=== PATIENT | female | born 1965 | race Caucasian/White ===

== ENCOUNTER → 2017-05-08 | Outpatient (CLI) | payer BC ==
[~2017-05-08] MED LIST: DSY50; INDSR60; NISO20TA PO; PHEN-876 PO; SUMA100T16; SYN100
--- NOTE | 2017-05-08 17:22 | DIAGNOSTIC IMAGING REPORT ---
RIGHT FOOT 3 VIEWS HISTORY: PAIN IN RIGHT FOOT Right COMPARISON: None. FINDINGS: There is no fracture or dislocation. Soft tissues are unremarkable. No radiopaque foreign bodies. Plantar heel spur. Mild cartilage space narrowing and subchondral sclerosis at the first MTP joint. This is consistent with mild degenerative change. IMPRESSION: No fractures. Mild osteoarthritis at the first MTP joint. Electronically signed by: Yogi Walker M.D. 05/08/2017 5:21 PM Dictated Date/Time: 05/08/2017 5:19 PM
== END | disposition home or self-care (01) ==
LOC: C.RAD 16:55
PROVIDERS: ATTEND Nurse Practitioner
DX: M79.671 Pain in right foot (principal)

== ENCOUNTER → 2017-10-30 | Outpatient (CLI) | payer BC ==
--- NOTE | 2017-10-30 14:11 | MAMMOGRAPHY REPORT ---
BILATERAL DIGITAL SCREENING MAMMOGRAM TOMOSYNTHESIS WITH CAD: 10/30/2017 CLINICAL HISTORY: Routine screening. TECHNIQUE: Breast tomosynthesis in addition to standard 2D mammography was performed. Current study was also evaluated with a Computer Aided Detection (CAD) system. COMPARISON: Comparison is made to exams dated: 10/29/2016 mammogram, 10/24/2015 mammogram, 4 mammogram, 10/20/2013 mammogram, 10/07/2012 mammogram, and 12/29/2010 mammogram - [facility]. BREAST COMPOSITION: There are scattered areas of fibroglandular density in both breasts. FINDINGS: No suspicious masses, calcifications, or areas of architectural distortion are noted in ei ther breast. There has been no significant interval change compared to prior exams. IMPRESSION: ACR BI-RADS CATEGORY 1: NEGATIVE There is no mammographic evidence of malignancy. A 1 year screening mammogram is recommended. The pa tient will receive written notification of the results. Approximately 10% of breast cancers are not detected with mammography. A negative mammographic report should not delay biopsy if a clinically suggestive mass is present. Christina Tapia M.D. /:10/30/2017 12:42:11 Setter Out: Alden BAR(Angelica)(M), [facility] letter sent: Normal 1/2 BI-RADS Code: ACR BI-RADS Category 1: Negative
== END | disposition home or self-care (01) ==
LOC: C.MAMM 12:04
PROVIDERS: ATTEND Obstetrics & Gynecology
DX: Z12.31 Encounter for screening mammogram for malignant neoplasm of breast (principal)

== ENCOUNTER → 2018-01-31 | Outpatient (CLI) | payer OTHER | END | disposition home or self-care (01) | LOC: C.PAPS 18:18 | PROVIDERS: ATTEND Obstetrics & Gynecology | DX: Z12.4 Encounter for screening for malignant neoplasm of cervix (principal) ==

== ENCOUNTER 2023-12-01 22:16 | Observation (INO) ==
[2023-12-01] MEDS ORDERED: KETOROLAC 30 MG/ML VIAL IV STA (22:30)
--- NOTE | 2023-12-01 22:41 | Emergency Department Note ---
History of Present Illness General Chief complaint: Swelling/Edema to Extremity Stated complaint: EDEMA TO RT FOOT/LEG,WENT DOWN AFTER MED/NOW BACK Time Seen by Provider: 12/01/23 22:27 History of Present Illness Maximum Pain Intensity: 7 This is a 58-year-old female presenting to the emergency department for evaluation of pain and redness to her right foot and ankle. Patient has had symptoms for the past 2 weeks. She has followed with her family doctor for this where she had blood work, ultrasound, and ankle x-rays that were reportedly normal. She was started on Augmentin and is on day 8 of 10 of the medication. Despite being on the medication she continues with worsening pain that is rated a 7/10. Patient is diabetic and has some neuropathy at baseline. She has not had any chest pain, chest tightness, shortness of breath, or fever. Home Medications Medication Instructions Recorded Confirmed Type losartan 100 1 tab PO QAM 12/04/19 12/02/23 History mg-hydrochlorothiazide 12.5 mg tablet trazodone 50 mg tablet 50 mg PO HS 12/04/19 12/02/23 History naproxen 500 mg tablet 500 mg PO Q12H PRN pain 12/15/20 12/02/23 History Nerve Control 911 1 tab PO AMHS 12/02/23 12/02/23 History duloxetine 60 mg capsule,delayed 60 mg PO HS 12/02/23 12/02/23 History release empagliflozin 10 mg tablet 10 mg PO QPM 12/02/23 12/02/23 History (Jardiance) glyburide 5 mg tablet 5 mg PO QAM 12/02/23 12/02/23 History insulin degludec 100 unit/mL (3 19 unit subcut HS 12/02/23 12/02/23 History mL) subcutaneous pen (Tresiba FlexTouch U-100 insulin) levothyroxine 175 mcg tablet 175 mcg PO 6XWK 12/02/23 12/02/23 History propranolol 120 mg capsule,24 120 mg PO QAM 12/02/23 12/02/23 History hr,extended release rosuvastatin 20 mg tablet 20 mg PO HS 12/02/23 12/02/23 History sitagliptin phosphate 50 1 tab PO BID 12/02/23 12/02/23 History mg-metformin 1,000 mg tablet ([place]) Allergies Allergy/AdvReac Type Severity Reaction Status Date / Time cephalexin [From Keflex] Allergy Intermediate Rash Verified 12/02/23 01:48 Sulfa (Sulfonamide Allergy Intermediate Rash Verified 12/02/23 01:48 Antibiotics) Past Med/Surg History Medical History History of thyroid cancer History of diabetes mellitus, type II History of migraine History of hypertension History of hypothyroidism KAVIN (obstructive sleep apnea) Surgical History History of endometrial ablation S/P tooth extraction History of thyroid surgery History of rotator cuff surgery History of cholecystectomy Family History Unknown Osteoarthritis Aunt Rheumatoid arthritis maternal Sister Hypothyroidism Mother Hypothyroidism Father Deep vein thrombosis Denies family history of Cervical cancer Ovarian cancer Breast cancer Colorectal cancer Uterine cancer Social History Smoking Status: Never smoker Second Hand Exposure: No; Do You Dip or Chew Tobacco: No; Tobacco Cessation Education Requested by Patient: No Hx Alcohol Use: Yes Alcohol type: wine Alcohol Intake Frequency: Monthly or Less Hx Substance Use: No Preferred Language: French Communication Ability: Effective 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 Beliefs That Will Affect Care: None marital status: Life Partner Current Living Situation: Spouse Current Living Situation Comment: multiple story house current occupational status: employed 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 Other Information That Helps Us Care for You: No Feels Safe at Home: Yes Safety Concerns: Feels Safe At This Time Diet: diabetic Physical Activity Frequency: Does not Exercise Assistive Devices: CPAP Review of Systems A total of 10 systems reviewed and were otherwise negative Physical Exam Vital Signs Vital Signs - 24 hr 12/01/23 22:19 12/01/23 22:30 12/01/23 23:00 Temperature 36.1 C L Temperature Source Temporal Artery Scan Pulse Rate 103 H 95 H Pulse Rate [Apical] 97 H Respiratory Rate 18 18 Respiratory Effort / Characteristics Non-Labored Spontaneous Non-Labored Spontaneous Respiratory Depth Normal Normal Respiratory Pattern Regular Regular Blood Pressure 144/93 H Blood Pressure [Right Arm] 165/98 H Blood Pressure Mean 110 Blood Pressure Mean [Right Arm] 120 Pulse Oximetry 96 95 Oxygen Delivery Method Room Air Room Air Sepsis Recent Fever Within 48 Hours No Sepsis New/Unexplained Change in Mental Status No Sepsis Action Taken by Nursing No Action Required 12/02/23 00:18 12/02/23 01:10 Temperature Temperature Source Pulse Rate Pulse Rate [Apical] 96 H 97 H Respiratory Rate 16 16 Respiratory Effort / Characteristics Respiratory Depth Respiratory Pattern Blood Pressure Blood Pressure [Right Arm] 138/88 138/91 Blood Pressure Mean Blood Pressure Mean [Right Arm] 104 106 Pulse Oximetry 95 94 Oxygen Delivery Method Room Air Room Air Sepsis Recent Fever Within 48 Hours Sepsis New/Unexplained Change in Mental Status Sepsis Action Taken by Nursing VITALS: Vitals are noted on the nurse's note and reviewed by myself. Vital signs stable. GENERAL: Well-developed, well-nourished, white female, who is in no acute distress and resting comfortably. Patient is cooperative with the examination. HEAD: Normocephalic atraumatic. HEART: Regular rate and rhythm without murmurs gallops or rubs. LUNGS: Clear to auscultation bilaterally without wheezes, rales or rhonchi. No retractions or accessory muscle use. ABDOMEN: Positive normal bowel sounds x 4. Soft, nontender, without masses or organomegaly. No guarding or rebound tenderness. MUSCULOSKELETAL: There is notable erythema and edema to the right ankle and to the right foot. Area is tender and warm on palpation. Neurovascular status appears intact. No palpable cord or calf tenderness. Course Administered Medications Discontinued Medications Hydroxyzine HCl (Hydroxyzine Hcl 25 Mg Tab) 25 mg PO NOW STA Stop: 12/02/23 01:31 Last Admin: 12/02/23 02:05 Dose: 25 mg Documented By: ENRIQUE Ketorolac Tromethamine (Ketorolac 30 Mg/Ml Vial) 30 mg IV NOW STA Stop: 12/01/23 22:31 Last Admin: 12/01/23 22:42 Dose: 30 mg Documented By: MED Medical Decision Making Differential Diagnosis Differential diagnosis: Etiologies such as DVT, vascular ischemia, radiculopathy, fracture, hematoma/contusion, myositis, abscess, septic arthritis cellulitis, joint effusion, trauma, lymphedema, idiopathic, CHF, as well as others were entertained. Laboratory Data 12/01/23 22:50 12/01/23 22:50 Lab Results 12/01/23 Range/Units 22:50 WBC 12.88 H (4.8-10.8) K/ul RBC 4.73 (4.20-5.40) M/uL Hgb 13.4 (12.0-16.0) g/dl Hct 38.2 (37.0-47.0) % MCV 80.8 (80.0-100.0) fL MCH 28.3 (25.0-34.0) pg MCHC 35.1 (32.0-36.0) g/dL RDW Std Deviation 37.5 (36.4-46.3) fL RDW Coeff of Sae 13.0 (11.5-14.5) % Plt Count 346 (130-400) K/uL MPV 8.9 L (9.4-12.4) fL Immature Gran % (Auto) 0.4 % Neut % (Auto) 61.5 % Lymph % (Auto) 25.2 % [place] % (Auto) 8.1 % Eos % (Auto) 4.0 % Baso % (Auto) 0.8 % Neut # (Auto) 7.93 H (1.40-6.50) K/uL Lymph # (Auto) 3.25 (1.20-3.40) K/uL [place] # (Auto) 1.04 H (0.11-0.59) K/uL Eos # (Auto) 0.51 H (0.00-0.50) K/uL Baso # (Auto) 0.10 (0.00-0.20) K/uL Immature Gran # (Auto) 0.05 (0.01-0.20) K/uL ESR 71 H (0-30) mm/hr Sodium 138 (136-145) mmol/L Potassium 3.5 (3.5-5.1) mmol/L Chloride 98 (98-107) mmol/L Carbon Dioxide 27 (21-32) mmol/L Anion Gap 13 H (3-11) BUN 18 (6-23) mg/dl Creatinine 1.05 (0.6-1.2) mg/dl Est Cr Clr Drug Dosing 65.4 ml/min Est GFR ( Amer) 67.3 ml/min Est GFR (Non-Af Amer) 58.1 ml/min BUN/Creatinine Ratio 17.1 (10-20) Glucose 175 H (70-99(Fasting)) mg/dl Uric Acid 4.8 (2.6-7.2) mg/dl Calcium 9.5 (8.6-10.3) mg/dl Total Bilirubin 0.5 (0.2-1.0) mg/dl AST 14 (13-39) U/L ALT 12 (7-52) U/L Alkaline Phosphatase 88 (34-104) U/L C-Reactive Protein 7.90 H (0-0.5) mg/dl Total Protein 7.8 (6.0-8.3) gm/dl Albumin 4.1 (3.4-5.0) gm/dl Globulin 3.7 (2.5-4.0) gm/dl Albumin/Globulin Ratio 1.1 (0.9-2) Lyme Disease IgG Ab Negative (Negative) Lyme Disease IgM Ab Negative (Negative) Imaging Data Radiologist's Impression: Venous Doppler Study 12/01/23 22:30 Exam(s): US VENOUS RIGHT LOWER EXTREMITY EXAM: US Duplex Right Lower Extremity Veins CLINICAL HISTORY: Reason for exam: rle edema. TECHNIQUE: Real-time duplex ultrasound scan of the right lower extremity veins integrating B-mode two-dimensional vascular structure, Doppler spectral analysis, color flow Doppler imaging and compression. COMPARISON: None. FINDINGS: Deep veins: Unremarkable. No DVT in the visualized common femoral, femoral, proximal deep femoral or popliteal veins. The veins demonstrate normal color flow, are normally compressible, with normal phasic flow and/or augmentation response. Superficial veins: Unremarkable. No thrombus in the visualized great saphenous vein. Soft tissues: No acute findings. No popliteal cyst. Lymph nodes: Ovoid structure at the level of the right groin measuring 4.0 x 1.3 x 2.1 cm which could represent an enlarged lymph node. IMPRESSION: 1. No ultrasonographic evidence of deep venous thrombosis involving the right lower extremity . 2. Mild lymphadenopathy at the right groin, etiology indeterminate and commonly associated with nonspecific inflammatory response. Electronically signed by: Julia Shanks MD 12/02/23 00:[address] 12/02/23 00:48 Exam(s): CT RIGHT FOOT Without Contrast EXAM: CT Right Lower Extremity Without Intravenous Contrast, Foot CLINICAL HISTORY: Reason for exam: acute Charcot foot. TECHNIQUE: Axial computed tomography images of the right foot without intravenous contrast. Automated exposure control was utilized for the study. A dose lowering technique was utilized adhering to the principles of ALARA. COMPARISON: None. FINDINGS: Bones/joints: Plantar calcaneal spur. Comminuted fracture involving the tip of the anterior calcaneus. Comminuted fracture involving the third cuneiform. Cephalad dislocated navicular with multiple comminuted bony fragments anterior to the talus, origin indeterminate. The metatarsal and phalanges first to fifth toes are normal. Soft tissues: Soft tissue swelling in the region of the midfoot and ankle which may indicate posttraumatic changes versus Charcot joint. IMPRESSION: 1. Multiple comminuted fragmented bones which could represent sequela of Charcot joint in the absence of trauma versus multifocal fractures and seen at the anterior calcaneus, third cuneiform and dorsal dislocation of the navicular with multiple fragmented bony fragments adjacent to the navicular as described. 2. Soft tissue swelling at midfoot level . Electronically signed by: Julia Shanks MD 12/02/23 01:52 AM MDM Narrative Physical exam and history were performed. Nursing notes, EMR, and Medication List were personally reviewed. No social concerns were identified as barriers to patients care. Patient appears to have pain and swelling into her right foot. This has been going on for a few weeks and she has had some blood work and ultrasounds that have been reportedly normal. She is with pretty significant neuropathy and is a diabetic. IV access was established and labs were obtained. Ultrasound was ordered. She seems to have some more pain in her foot than previously, and does not have recent foot x-rays, only recent ankle x-rays. Patient's blood work is as above and was reviewed. She does have a slightly elevated white count of 12.8. She does not have significant anemia or gross electrolyte imbalance. Sed rate and CRP are both elevated. Uric acid and Lyme are negative. X-ray was performed and reviewed by myself and my attending. The patient seems to have findings concerning for an acute Charcot joint, and this is notably different from her x-ray a few days ago. An ultrasound was performed does not show evidence of DVT. I did reach out to the on-call orthopedist, Dr. Barrios, as well as the on-call investigation division lieutenant, Dr. Garcia. Specialists were very helpful, and I did attempt to reduce the dislocation at bedside, but was not successful. Ultimately the plan will be to CT the foot and have the patient evaluated by Dr. Garcia in the morning. The patient may need surgical intervention through podiatry. Patient was comfortable with this and the case was discussed with the on-call hospitalist team. Please see their dictation for further patient course, plan, and disposition. The chart was completed utilizing [employer] Speech Voice Recognition Software. Grammatical errors, random word insertions, pronoun errors, and incomplete sentences are an occasional consequence of this system due to software limitations, ambient noise, and hardware issues. Any formal questions or concerns about the content, text, or information contained within the body of this dictation should be directly addressed to the provider for clarification. . Impression & Plan Charcot foot due to diabetes mellitus Discharge Plan Visit Data Chief Complaint: Swelling/Edema to Extremity Stated Complaint: EDEMA TO RT FOOT/LEG,WENT DOWN AFTER MED/NOW BACK ED Provider: [facility] Midlevel Provider: Tom Guaman Discharge Problem: Charcot foot due to diabetes mellitus Patient Disposition: Admitted As Inpatient Discharge Instructions Interventions: ED Discharge Assessment Last Done: 12/02/23 02:56
[2023-12-01 23:05] LABS: Basophils % (auto) 0.8 %; Eosinophils # (auto) 0.51 K/uL (0.00-0.50); Hematocrit (blood only) 38.2 % (37.0-47.0); Hemoglobin 13.4 g/dl (12.0-16.0); Immature Granulocytes # (auto) 0.05 K/uL (0.01-0.20); Immature Granulocytes % (auto) 0.4 %; Lymphocytes # (auto) 3.25 K/uL (1.20-3.40); Lymphocytes % (auto) 25.2 %; Mean Corpuscular Hemoglobin 28.3 pg (25.0-34.0); Mean Corpuscular Hgb Conc 35.1 g/dL (32.0-36.0); Mean Corpuscular Volume 80.8 fL (80.0-100.0); Mean Platelet Volume 8.9 fL (9.4-12.4); Monocytes # (auto) 1.04 K/uL (0.11-0.59); Monocytes % (auto) 8.1 %; Neutrophils # (auto) 7.93 K/uL (1.40-6.50); Neutrophils % (auto) 61.5 %; Platelet Count 346 K/uL (130-400); RDW Standard Deviation 37.5 fL (36.4-46.3); Red Blood Count 4.73 M/uL (4.20-5.40); White Blood Count 12.88 K/ul (4.8-10.8)
[2023-12-01 23:25] LABS: Albumin Globulin Ratio 1.1 (0.9-2); Albumin Level 4.1 gm/dl (3.4-5.0); BUN Creatinine Ratio 17.1 (10-20); Bilirubin,Total 0.5 mg/dl (0.2-1.0); C Reactive Protein 7.9 mg/dl (0-0.5); Calcium 9.5 mg/dl (8.6-10.3); Creatinine Clr Calc Pharmacy 65.4 ml/min; Est GFR (African American) 67.3 ml/min; Est GFR (Non-African American) 58.1 ml/min; Globulin 3.7 gm/dl (2.5-4.0); Potassium 3.5 mmol/L (3.5-5.1); Total Protein 7.8 gm/dl (6.0-8.3); Uric Acid 4.8 mg/dl (2.6-7.2)
[2023-12-01 23:42] LABS: Lyme Ab IgG w/WB Rflx Negative (Negative); Lyme Ab IgM w/WB Rflx Negative (Negative)
--- NOTE | 2023-12-02 00:36 | Ultrasound Report ---
Exam(s): US VENOUS RIGHT LOWER EXTREMITY EXAM: US Duplex Right Lower Extremity Veins CLINICAL HISTORY: Reason for exam: rle edema. TECHNIQUE: Real-time duplex ultrasound scan of the right lower extremity veins integrating B-mode two-dimensional vascular structure, Doppler spectral analysis, color flow Doppler imaging and compression. COMPARISON: None. FINDINGS: Deep veins: Unremarkable. No DVT in the visualized common femoral, femoral, proximal deep femoral or popliteal veins. The veins demonstrate normal color flow, are normally compressible, with normal phasic flow and/or augmentation response. Superficial veins: Unremarkable. No thrombus in the visualized great saphenous vein. Soft tissues: No acute findings. No popliteal cyst. Lymph nodes: Ovoid structure at the level of the right groin measuring 4.0 x 1.3 x 2.1 cm which could represent an enlarged lymph node. IMPRESSION: 1. No ultrasonographic evidence of deep venous thrombosis involving the right lower extremity . 2. Mild lymphadenopathy at the right groin, etiology indeterminate and commonly associated with nonspecific inflammatory response. Electronically signed by: Julia Shanks MD 12/02/23 00:35 AM
--- NOTE | 2023-12-02 01:05 | History & Physical Report ---
Date of Service December 02, 2023 Assessment & Plan (1) Swelling of right foot: Plan: Pt is a 58 yo female with PMH of DM w/ neuropathy, HTN, hypothyroidism, KAVIN, and thyroid cancer presenting to the ER d/t right foot swelling. Right foot swelling - US neg for DVT, right foot CT showed multiple fragmented bones consistent with charcot joint - WBC 12.88, ESR 71, CRP 7.90; lyme negative - do not suspect overlying cellulitis at this point (s/p augmentin); no need for further antibiotics at this point - continue pain control with tylenol PRN - podiatry consulted for further evaluation/management DM w/ neuropathy - last A1c 8.4% - hold home regimen; jardiance, glyburide, and sitagliptin/metformin - SSI with goal 110-140; CF 25, CR 9 - insulin glargine 10 units BID - adjust insulin regimen PRN - continue rosuvastatin 20 mg daily - continue duloxetine 60 mg daily for neuropathic pain HTN - continue home regimen; losartan 100mg/HCTZ 12.5mg and propranolol 120 mg daily Insomnia - given hydroxyzine 25 mg x1 night of admission - otherwise, continue home trazodone 50 mg qHS Diet: NPO (may have water and meds) until evaluated by Dr. Garcia VTE ppx: lovenox Code: DNR Dispo: admit to med/surg (2) KAVIN (obstructive sleep apnea): (3) Type 2 diabetes mellitus: (4) Charcot foot due to diabetes mellitus: History of Present Illness Chief Complaint: right foot edema Primary Care Provider: Magdalene Milligan DO Pt is a 58 yo female with PMH of DM w/ neuropathy, HTN, hypothyroidism, KAVIN, and thyroid cancer presenting to the ER d/t right foot swelling. Pt explains that her right foot began to swell ~2 weeks ago. No injury or trauma. She saw her PCP for this and was given augmentin for possible cellulitis- xrays and US to r/o DVT were negative. She presented today d/t her foot pain significantly worsening. The pain comes and goes, and it is worse when walking/bearing weight. She denies any other symptoms- no chest pain, SOB, abdominal pain, or calf pain. In the ER, she was given 30 mg toradol. Allergies Allergy/AdvReac Type Severity Reaction Status Date / Time cephalexin [From KeStackBlaze] Allergy Intermediate Rash Verified 12/02/23 01:48 Sulfa (Sulfonamide Allergy Intermediate Rash Verified 12/02/23 01:48 Antibiotics) Home Medications Medication Instructions Recorded Confirmed Type losartan 100 1 tab PO QAM 12/04/19 12/02/23 History mg-hydrochlorothiazide 12.5 mg tablet trazodone 50 mg tablet 50 mg PO HS 12/04/19 12/02/23 History naproxen 500 mg tablet 500 mg PO Q12H PRN pain 12/15/20 12/02/23 History Nerve Control 911 1 tab PO AMHS 12/02/23 12/02/23 History duloxetine 60 mg capsule,delayed 60 mg PO HS 12/02/23 12/02/23 History release empagliflozin 10 mg tablet 10 mg PO QPM 12/02/23 12/02/23 History (Jardiance) glyburide 5 mg tablet 5 mg PO QAM 12/02/23 12/02/23 History insulin degludec 100 unit/mL (3 19 unit subcut HS 12/02/23 12/02/23 History mL) subcutaneous pen (Tresiba FlexTouch U-100 insulin) levothyroxine 175 mcg tablet 175 mcg PO 6XWK 12/02/23 12/02/23 History propranolol 120 mg capsule,24 120 mg PO QAM 12/02/23 12/02/23 History hr,extended release rosuvastatin 20 mg tablet 20 mg PO HS 12/02/23 12/02/23 History sitagliptin phosphate 50 1 tab PO BID 12/02/23 12/02/23 History mg-metformin 1,000 mg tablet ([place]) Past Med/Surg History Medical History History of thyroid cancer History of diabetes mellitus, type II History of migraine History of hypertension History of hypothyroidism KAVIN (obstructive sleep apnea) Surgical History History of endometrial ablation S/P tooth extraction History of thyroid surgery History of rotator cuff surgery History of cholecystectomy Family History Unknown Osteoarthritis Aunt Rheumatoid arthritis maternal Sister Hypothyroidism Mother Hypothyroidism Father Deep vein thrombosis Denies family history of Cervical cancer Ovarian cancer Breast cancer Colorectal cancer Uterine cancer Social History Smoking Status: Never smoker Hx Alcohol Use: Yes Alcohol Intake Frequency: Monthly or Less Preferred Language: Malay Beliefs That Will Affect Care: None marital status: Life Partner current occupational status: employed 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 No rhonchi, wheezes, or crackles. No increased work of breathing GI: soft, nondistended, nontender, + bowel sounds MSK: no gross deformities noted; right foot warm to touch and slightly erythematous. 2+ non pitting edema present throughout foot to ankle. Minimal pain upon palpation. Skin: warm, dry, no rashes Neuro: alert, oriented, no FND noted; bilateral foot sensation intact but diminished. Psych: mood and affect congruent Results & Data Results & Data Vital Signs (Past 12 Hours) Vital Signs Temp Pulse Pulse Resp BP BP Pulse Ox 12/02/23 00:18 96 H 16 138/88 95 12/01/23 23:00 95 H 12/01/23 22:30 97 H 18 165/98 H 95 12/01/23 22:19 36.1 C L 103 H 18 144/93 H 96 O2 Del Method 12/02/23 00:18 Room Air 12/01/23 23:00 12/01/23 22:30 Room Air 12/01/23 22:19 Room Air Resident Activity Tracking Resident Involvement: Resident Care Provided Care Provided: Adult Hospital Medicine
[2023-12-02] MEDS ORDERED: ONDANSETRON INJ 2 MG/ML 2 ML VIAL IV PRN (01:28)
[2023-12-02] MEDS ORDERED: ACETAMINOPHEN 325 MG TAB PO PRN (01:28)
[2023-12-02] MEDS ORDERED: POLYETHYLENE (MIRALAX) 17 GM PACK PO PRN (01:28)
[2023-12-02] MEDS ORDERED: MELATONIN 3 MG TAB PO PRN (01:28)
[2023-12-02] MEDS ORDERED: hydrOXYzine HCl 25 MG TAB PO STA (01:30)
[2023-12-02] MEDS ORDERED: GLUCOSE 10 TAB/TUBE PO PRN (01:46)
[2023-12-02] MEDS ORDERED: CARBOHYDRATES FOR HYPOGLYCEMIA PO PRN (01:46)
[2023-12-02] MEDS ORDERED: DEXTROSE 50% 50 ML SYRINGE IV PRN (01:46)
[2023-12-02] MEDS ORDERED: GLUCOSE 40% GEL 15 GM TUBE PO PRN (01:46)
[2023-12-02] MEDS ORDERED: GLUCAGON FOR INJ 1 MG VIAL SQ PRN (01:46)
--- NOTE | 2023-12-02 01:53 | CT Scan Report ---
Exam(s): CT RIGHT FOOT Without Contrast EXAM: CT Right Lower Extremity Without Intravenous Contrast, Foot CLINICAL HISTORY: Reason for exam: acute Charcot foot. TECHNIQUE: Axial computed tomography images of the right foot without intravenous contrast. Automated exposure control was utilized for the study. A dose lowering technique was utilized adhering to the principles of ALARA. COMPARISON: None. FINDINGS: Bones/joints: Plantar calcaneal spur. Comminuted fracture involving the tip of the anterior calcaneus. Comminuted fracture involving the third cuneiform. Cephalad dislocated navicular with multiple comminuted bony fragments anterior to the talus, origin indeterminate. The metatarsal and phalanges first to fifth toes are normal. Soft tissues: Soft tissue swelling in the region of the midfoot and ankle which may indicate posttraumatic changes versus Charcot joint. IMPRESSION: 1. Multiple comminuted fragmented bones which could represent sequela of Charcot joint in the absence of trauma versus multifocal fractures and seen at the anterior calcaneus, third cuneiform and dorsal dislocation of the navicular with multiple fragmented bony fragments adjacent to the navicular as described. 2. Soft tissue swelling at midfoot level . Electronically signed by: Julia Shanks MD 12/02/23 01:52 AM
[2023-12-02] MEDS ORDERED: INSULIN ASPART PER UNIT CHARGE SC SCH ×2 (06:00→11:30)
[2023-12-02] MEDS ORDERED: LEVOTHYROXINE SODIUM 175 MCG TABLET PO SCH (06:30)
--- NOTE | 2023-12-02 06:56 | Hospitalist Progress Note ---
Date of Service December 02, 2023 Assessment & Plan (1) Swelling of right foot: Plan: Pt is a 58 yo female with PMH of DM w/ neuropathy, HTN, hypothyroidism, KAVIN, and thyroid cancer presenting to the ER d/t right foot swelling. Right foot swelling - US neg for DVT, right foot CT showed multiple fragmented bones consistent with Charcot joint - WBC 12.88, ESR 71, CRP 7.90; lyme negative - do not suspect overlying cellulitis at this point (s/p Augmentin); no need for further antibiotics at this point - continue pain control with Tylenol PRN - podiatry consulted for further evaluation/management DM w/ neuropathy - last A1c 8.4% - hold home regimen; Jardiance, glyburide, and sitagliptin/metformin - SSI with goal 110-140; CF 25, CR 9 - insulin glargine 10 units BID - adjust insulin regimen PRN - continue rosuvastatin 20 mg daily - continue duloxetine 60 mg daily for neuropathic pain HTN - continue home regimen; losartan 100mg/HCTZ 12.5mg and propranolol 120 mg daily Insomnia - given hydroxyzine 25 mg x1 night of admission - otherwise, continue home trazodone 50 mg qHS Diet: NPO (may have water and meds) until evaluated by Dr. Garcia VTE ppx: lovenox Code: DNR Dispo: admit to med/surg (2) KAVIN (obstructive sleep apnea): (3) Type 2 diabetes mellitus: (4) Charcot foot due to diabetes mellitus: Admission and Anticipated Discharge Date Admission Date: December 02, 2023 Results & Data Results & Data Vital Signs (Past 12 Hours) Vital Signs Temp Pulse Pulse Pulse Resp BP BP 12/02/23 03:51 36.5 C 91 H 18 145/81 H 12/02/23 02:56 89 16 12/02/23 02:24 88 16 130/78 12/02/23 01:10 97 H 16 138/91 12/02/23 00:18 96 H 16 138/88 12/01/23 23:00 95 H 12/01/23 22:30 97 H 18 165/98 H 12/01/23 22:19 36.1 C L 103 H 18 144/93 H Pulse Ox O2 Del Method 12/02/23 03:51 96 Room Air 12/02/23 02:56 96 12/02/23 02:24 97 Room Air 12/02/23 01:10 94 Room Air 12/02/23 00:18 95 Room Air 12/01/23 23:00 12/01/23 22:30 95 Room Air 12/01/23 22:19 96 Room Air
--- NOTE | 2023-12-02 07:12 | XRay Report ---
XR foot RT min 3V routine HISTORY: 58 years-old Female edema acute right foot pain status post trauma COMPARISON: CT right foot 12/02/2023 TECHNIQUE: 3 views of the right foot FINDINGS: Acute and comminuted fractures are noted involving the third cuneiform, cuboid, anterior calcaneal pr ocess, and navicular with subacute cortical chip fracture of the intra-articular talar neck. Several fractures are mildly displaced. There is dorsal dislocation of the navicular in relation to the talus . Additional acute fracture involves the base of the fourth metatarsal. 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 IMPRESSION: Numerous acute fractures above with talonavicular dislocation. ACT 112: Negative or not required by law. The above report was generated using voice recognition software. It may contain grammatical, syntax o r spelling errors. Electronically signed by: Liam Morgan M.D. 12/02/2023 7:11 AM
--- NOTE | 2023-12-02 07:12 | XRay Report ---
XR foot LT min 3V routine, XR foot RT 2V HISTORY: 58 years-old Female pain acute bilateral foot pain COMPARISON: Right foot CT of same day TECHNIQUE: 3 views of the bilateral feet FINDINGS: LEFT: Mildly demineralized appearance of the bones. There is mild multifocal osteoarthritis. Moderate-sized calcaneal enthesophytes. Mild apex medial angulation of the first DIP joint appears degenerative. No acute fracture, dislocation or opaque foreign body identified. RIGHT: Acute and comminuted fractures are noted involving the third cuneiform, cuboid, anterior calcaneal pr ocess, and navicular with subacute cortical chip fracture of the intra-articular talar neck. There is dorsal dislocation of the navicular in relation to the talus. Additional acute fracture involves the base of the fourth metatarsal. Moderate osteoarthritis of the first DIP joint. IMPRESSION: 1. Acute fractures of the forefoot, midfoot and hindfoot as above, better evaluated on the same day C T examination. 2. Persistent dislocation of the talonavicular joint. ACT 112: Negative or not required by law. The above report was generated using voice recognition software. It may contain grammatical, syntax o r spelling errors. Electronically signed by: Liam Morgan M.D. 12/02/2023 7:10 AM
[2023-12-02] MEDS ORDERED: PROPRANOLOL HCL 60 MG LA CAP PO SCH (09:00)
[2023-12-02] MEDS ORDERED: DULoxetine HCL 60 MG CAP PO SCH (09:00)
[2023-12-02] MEDS ORDERED: LOSARTAN POTASSIUM 50 MG TAB PO SCH (09:00)
[2023-12-02] MEDS ORDERED: LANTUS PER UNIT CHARGE SQ SCH (09:00)
[2023-12-02] MEDS ORDERED: hydroCHLOROthiazide 25 MG TAB PO SCH (09:00)
[2023-12-02] MEDS ORDERED: ROSUVASTATIN CALCIUM 20 MG TAB PO SCH (09:00)
--- NOTE | 2023-12-02 09:06 | Discharge Summary ---
Date of Service December 02, 2023 Admission HPI Per Admitting Provider Pt is a 58 yo female with PMH of DM w/ neuropathy, HTN, hypothyroidism, KAVIN, and thyroid cancer presenting to the ER d/t right foot swelling. Pt explains that her right foot began to swell ~2 weeks ago. No injury or trauma. She saw her PCP for this and was given augmentin for possible cellulitis- xrays and US to r/o DVT were negative. She presented today d/t her foot pain significantly worsening. The pain comes and goes, and it is worse when walking/bearing weight. She denies any other symptoms- no chest pain, SOB, abdominal pain, or calf pain. In the ER, she was given 30 mg toradol. Admission Exam Per Admitting Provider Constitutional: well appearing, no acute distress HEENT: normocephalic, no conjunctival injection CV: RRR, no murmur, no LE edema Respiratory: CTA bilaterally. No rhonchi, wheezes, or crackles. No increased work of breathing GI: soft, nondistended, nontender, + bowel sounds MSK: no gross deformities noted; right foot warm to touch and slightly erythematous. 2+ non pitting edema present throughout foot to ankle. Minimal pain upon palpation. Skin: warm, dry, no rashes Neuro: alert, oriented, no FND noted; bilateral foot sensation intact but diminished. Psych: mood and affect congruent Principal Diagnosis Charcot foot Discharge Exam Constitutional: well-appearing, no acute distress HEENT: NCAT, no conjunctival injection CV: regular rhythm, no murmur appreciated, extremities well-perfused, no LE edema Resp: CTABL, no wheezes/rales/rhonchi appreciated, no increased work of breathing GI: soft, nondistended, nontender, BS normoactive MSK: Right foot and ankle nonpitting edema nontender on palpitation, no erythematous or warmth Skin: warm, dry, no rash appreciated Neuro: alert, oriented, no focal neurologic deficit appreciated Discharge Data Allergies Allergy/AdvReac Type Severity Reaction Status Date / Time cephalexin [From Keflex] Allergy Intermediate Rash Verified 12/02/23 01:48 Sulfa (Sulfonamide Allergy Intermediate Rash Verified 12/02/23 01:48 Antibiotics) Consultations 12/02/23 01:05 ED Decision to Admit Stat 12/02/23 01:28 Consult Podiatry Routine Venous Doppler Study 12/01/23 22:30 Exam(s): US VENOUS RIGHT LOWER EXTREMITY EXAM: US Duplex Right Lower Extremity Veins CLINICAL HISTORY: Reason for exam: rle edema. TECHNIQUE: Real-time duplex ultrasound scan of the right lower extremity veins integrating B-mode two-dimensional vascular structure, Doppler spectral analysis, color flow Doppler imaging and compression. COMPARISON: None. FINDINGS: Deep veins: Unremarkable. No DVT in the visualized common femoral, femoral, proximal deep femoral or popliteal veins. The veins demonstrate normal color flow, are normally compressible, with normal phasic flow and/or augmentation response. Superficial veins: Unremarkable. No thrombus in the visualized great saphenous vein. Soft tissues: No acute findings. No popliteal cyst. Lymph nodes: Ovoid structure at the level of the right groin measuring 4.0 x 1.3 x 2.1 cm which could represent an enlarged lymph node. IMPRESSION: 1. No ultrasonographic evidence of deep venous thrombosis involving the right lower extremity . 2. Mild lymphadenopathy at the right groin, etiology indeterminate and commonly associated with nonspecific inflammatory response. Electronically signed by: Julia Shanks MD 12/02/23 00:35 AM Foot X-Ray 12/01/23 22:32 XR foot RT min 3V routine HISTORY: 58 years-old Female edema acute right foot pain status post trauma COMPARISON: CT right foot 12/02/2023 TECHNIQUE: 3 views of the right foot FINDINGS: Acute and comminuted fractures are noted involving the third cuneiform, cuboid, anterior calcaneal process, and navicular with subacute cortical chip fracture of the intra-articular talar neck. Several fractures are mildly displaced. There is dorsal dislocation of the navicular in relation to the talus. Additional acute fracture involves the base of the fourth metatarsal. 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 IMPRESSION: Numerous acute fractures above with talonavicular dislocation. ACT 112: Negative or not required by law. The above report was generated using voice recognition software. It may contain grammatical, syntax or spelling errors. Electronically signed by: Liam Morgan M.D. 12/02/2023 7:11 AM Foot X-Ray 12/01/23 23:39 XR foot LT min 3V routine, XR foot RT 2V HISTORY: 58 years-old Female pain acute bilateral foot pain COMPARISON: Right foot CT of same day TECHNIQUE: 3 views of the bilateral feet FINDINGS: LEFT: Mildly demineralized appearance of the bones. There is mild multifocal osteoarthritis. Moderate-sized calcaneal enthesophytes. Mild apex medial angulation of the first DIP joint appears degenerative. No acute fracture, dislocation or opaque foreign body identified. RIGHT: Acute and comminuted fractures are noted involving the third cuneiform, cuboid, anterior calcaneal process, and navicular with subacute cortical chip fracture of the intra-articular talar neck. There is dorsal dislocation of the navicular in relation to the talus. Additional acute fracture involves the base of the fourth metatarsal. Moderate osteoarthritis of the first DIP joint. IMPRESSION: 1. Acute fractures of the forefoot, midfoot and hindfoot as above, better evaluated on the same day CT examination. 2. Persistent dislocation of the talonavicular joint. ACT 112: Negative or not required by law. The above report was generated using voice recognition software. It may contain grammatical, syntax or spelling errors. Electronically signed by: Liam Morgan M.D. 12/02/2023 7:10 AM Foot X-Ray 12/02/23 00:17 XR foot LT min 3V routine, XR foot RT 2V HISTORY: 58 years-old Female pain acute bilateral foot pain COMPARISON: Right foot CT of same day TECHNIQUE: 3 views of the bilateral feet FINDINGS: LEFT: Mildly demineralized appearance of the bones. There is mild multifocal osteoar thritis. Moderate-sized calcaneal enthesophytes. Mild apex medial angulation of the first DIP joint appears degenerative. No acute fracture, dislocation or opaque foreign body identified. RIGHT: Acute and comminuted fractures are noted involving the third cuneiform, cuboid, anterior calcaneal process, and navicular with subacute cortical chip fracture of the intra-articular talar neck. There is dorsal dislocation of the navicular in relation to the talus. Additional acute fracture involves the base of the fourth metatarsal. Moderate osteoarthritis of the first DIP joint. IMPRESSION: 1. Acute fractures of the forefoot, midfoot and hindfoot as above, better evaluated on the same day CT examination. 2. Persistent dislocation of the talonavicular joint. ACT 112: Negative or not required by law. The above report was generated using voice recognition software. It may contain grammatical, syntax or spelling errors. Electronically signed by: Liam Morgan M.D. 12/02/2023 7:[address] 12/02/23 00:48 Exam(s): CT RIGHT FOOT Without Contrast EXAM: CT Right Lower Extremity Without Intravenous Contrast, Foot CLINICAL HISTORY: Reason for exam: acute Charcot foot. TECHNIQUE: Axial computed tomography images of the right foot without intravenous contrast. Automated exposure control was utilized for the study. A dose lowering technique was utilized adhering to the principles of ALARA. COMPARISON: None. FINDINGS: Bones/joints: Plantar calcaneal spur. Comminuted fracture involving the tip of the anterior calcaneus. Comminuted fracture involving the third cuneiform. Cephalad dislocated navicular with multiple comminuted bony fragments anterior to the talus, origin indeterminate. The metatarsal and phalanges first to fifth toes are normal. Soft tissues: Soft tissue swelling in the region of the midfoot and ankle which may indicate posttraumatic changes versus Charcot joint. IMPRESSION: 1. Multiple comminuted fragmented bones which could represent sequela of Charcot joint in the absence of trauma versus multifocal fractures and seen at the anterior calcaneus, third cuneiform and dorsal dislocation of the navicular with multiple fragmented bony fragments adjacent to the navicular as described. 2. Soft tissue swelling at midfoot level . Electronically signed by: Julia Sahnks MD 12/02/23 01:52 AM Procedures Performed Operation Date: 12/02/23 08:30 <No data on this case meets the specified criteria> Ordered Studies 12/01/23 22:30 US venous duplex leg [US venous doppler LE RT] Stat 12/02/23 00:48 CT foot RT wo con Stat Hospital Course (1) Swelling of right foot: (2) KAVIN (obstructive sleep apnea): (3) Type 2 diabetes mellitus: (4) Charcot foot due to diabetes mellitus: Plan Pt is a 58 yo female with PMH of DM w/ neuropathy, HTN, hypothyroidism, KAVIN, and thyroid cancer presenting to the ER d/t right foot swelling. Right foot swelling/ Charcot's foot - US neg for DVT, right foot CT showed multiple fragmented bones consistent with charcot joint - WBC 12.88, ESR 71, CRP 7.90; lyme negative - do not suspect overlying cellulitis at this point (s/p augmentin); no need for further antibiotics at this point - continue pain control with tylenol PRN - podiatry consulted for further evaluation/management: -Dr. Garcia spoke with patient's guidance and control system engineer and it was decided to have patient follow-up with appointment on 12/03. Where options for Charcot's foot can be discussed. DM w/ neuropathy - last A1c 8.4% - hold home regimen; jardiance, glyburide, and sitagliptin/metformin - SSI with goal 110-140; CF 25, CR 9 - insulin glargine 10 units BID - adjust insulin regimen PRN - continue rosuvastatin 20 mg daily - continue duloxetine 60 mg daily for neuropathic pain HTN - continue home regimen; losartan 100mg/HCTZ 12.5mg and propranolol 120 mg daily Insomnia - given hydroxyzine 25 mg x1 night of admission - otherwise, continue home trazodone 50 mg qHS Total Time Total Time Spent Total Time Spent (In Minutes): Please refer to attendings attestation Discharge Plan Discharge Items Patient Disposition: Home - Self-Care Reason For Visit: RIGHT FOOT SWELLING Discharge Diagnosis: Charcot foot Activity: Resume your previous activity Non-emergency contact: Primary Care Provider Call non-emergency contact if: your pain is unusual for you and your temperature is above 101.5 Follow-up/Referrals: Alannah Rubi DPM [Physician] - 12/03/23 10:15 am Mgadalene Milligan DO [Primary Care Provider] - 12/05/23 11:00 am (DR RUEDA) Diet: Regular Addtl Attending Provider Instructions: You were admitted to the hospital for Charcot foot. You have an appointment tomorrow with podiatry which we will go over options for treatment of your Charcot foot. A discharge summary will be sent to your primary care physician to ensure continuity of care. Please bring this discharge summary with you to your next office appointment so that your provider can review it at that time. Follow-up appointments: * Make a follow-up appointment with your PCP within the next week. It is very important that you follow up with them shortly after discharge from the hospital. * You have an appointment with Dr. Rubi tomorrow 12/03/2023 at 10:15 AM. * Keep all your follow-up appointments as already scheduled. If you cannot make an appointment, notify your provider. Medications: Your medication list has been reviewed and reconciled upon discharge to ensure accuracy and continuity of care. An updated list of all your medications is included with your hospital discharge paperwork. Please review this list closely, and make note of any changes. * No new medications were added to your medication list. * If you have any issues filling these prescriptions, please call [phone] and ask to leave a message for Dr. Grace. * Take your medications as instructed; do not skip a dose of your medicines. Make sure all of your doctors know every medicine you are taking (including [id number] medicines, vitamins, and supplements). Call your primary care provider before taking any new medicines (including over- the-counter medicines, vitamins, and supplements), because some of these may interact with your current medications, or may make your symptoms worse. Tell your primary care provider if you cannot afford your medications. CONTACT YOUR PRIMARY CARE PROVIDER if you experience any of the following: * Worsening of symptoms * Fever, chills, or fatigue * Difficulty following your treatment plan, or difficulty taking medications CALL 911 OR GO TO THE EMERGENCY DEPARTMENT if you experience any of the following: * Sudden, severe abdominal pain or nausea/vomiting * Severe chest pain, or chest pain that radiates (moves) to your jaw or arm * Sudden, severe shortness of breath or difficulty breathing Thank you for allowing us to participate in your care. Pending Studies at Discharge: No Stand-Alone Forms: [facility] Holding, Smoking Cessation Medications and DC Order Prescriptions: Continued losartan-hydrochlorothiazide 100-12.5 mg tablet 1 tab PO QAM trazodone 50 mg tablet 50 mg PO HS naproxen 500 mg tablet 500 mg PO Q12H PRN (Reason: pain) duloxetine 60 mg capsule,delayed release(DR/EC) 60 mg PO HS levothyroxine 175 mcg tablet 175 mcg PO [id number] Rx Instructions: DO NOT TAKE ON SUNDAYS propranolol 120 mg capsule,extended release 24 hr 120 mg PO QAM insulin degludec [Tresiba FlexTouch U-100] 100 unit/mL (3 mL) insulin pen 19 unit SUBCUT HS glyburide 5 mg tablet 5 mg PO QAM Nerve Control 911 1 tab PO AMHS Jardiance 10 mg tablet 10 mg PO QPM rosuvastatin 20 mg tablet 20 mg PO HS Janumet 50-1,000 mg tablet 1 tab PO BID Discharge Orders: Discharge Order (Routine); Ordered 12/02/23 Ordered By: Phu Mantilla/Other Patient Handouts: Managing Type 2 Diabetes, Special Foot Care for Diabetes Admission Data Admit Date/Time: 12/02/23 01:28 Attending Provider: [place] Admit Provider: Margareth Mccallum Primary Care Provider: Magdalene Milligan Other Providers: Nicholas Garcia; Deborah Kang Other Interventions: Discharge Summary Assessment (RN) Last Done: 12/02/23 12:02 Supervising Physician Co-Signing Physician Notes Attending attestation Pt seen and examined in concert with Dr. Grace. In agreement with the documented findings as noted in the resident documentation with any exceptions or additions as noted here. Pain of the right foot well controlled at present without fever. Swelling has improved subjectively since admission. On examination, S1/S2 nl RRR no MCG. CTAB. Abd NT/ND BS+ve, mild swelling of the right foot without erythema Right foot swelling w/ Charcot foot - d/w podiatry inpatient and continuity - will discharge to close follow up for outpatient nonsurgical management with precautions for activity and worsening sx. Else see resident documentation as noted. Total attending physician time spent with this patient's care on the day of discharge: 35 minutes. Resident Activity Tracking Resident Involvement: Resident Care Provided Care Provided: Adult Hospital Medicine
--- NOTE | 2023-12-02 14:59 | Orthopedic Consultation ---
Date of Consultation December 02, 2023 Assessment & Plan (1) Charcot foot due to diabetes mellitus: Patient seen and evaluated in room E305-1. Patient has an acute talonavicular dislocation based on diagnostic imaging CT and plain film. Based on previous plain films taken 5 days ago the complete dislocation happened within the last 4 days. Patient does not recall a specific trauma but does note the foot suddenly became much more swollen in the previous 24-[address] images show probable acute neuropathic joint. This was discussed in length with Patient. I spoke with Patient's hotel valet attendant Dr. Rubi this morning who is able to see Patient in her clinic on 12/03/23 for management. Will continue to follow up as needed. Thank you for allowing me to participate in the care of this Patient. (2) Swelling of right foot: (3) Type 2 diabetes mellitus: History of Present Illness Attending Physician: Rancho Koehler MD History of Present Illness Patient is a pleasant 58 year old female seen at bedside in room 305-1 this morning resting comfortably. Patient has a past medical history of type II diabetes with neuropathy, HTN, hypothyroidism, KAVIN, and thyroid cancer. She was seen in [facility] Emergency Department last evening where she presented for right foot pain and swelling. Patient notes recent pain for 2 weeks with no injury or trauma. She saw her PCP for this and was given Augmentin for possible cellulitis- x-rays and US to r/o DVT were negative. X-rays taken 5 days earlier compared with x-rays taken today show recent dislocation of talonavicular joint. CT taken does show some adjacent bone comminution not seen on plain film which is consistent with Charcot Arthropathy Neuropathic joint. Allergies Allergy/AdvReac Type Severity Reaction Status Date / Time cephalexin [From Keflex] Allergy Intermediate Rash Verified 12/02/23 01:48 Sulfa (Sulfonamide Allergy Intermediate Rash Verified 12/02/23 01:48 Antibiotics) Home Medications Medication Instructions Recorded Confirmed Type losartan 100 1 tab PO QAM 12/04/19 12/02/23 History mg-hydrochlorothiazide 12.5 mg tablet trazodone 50 mg tablet 50 mg PO HS 12/04/19 12/02/23 History naproxen 500 mg tablet 500 mg PO Q12H PRN pain 12/15/20 12/02/23 History Nerve Control 911 1 tab PO AMHS 12/02/23 12/02/23 History duloxetine 60 mg capsule,delayed 60 mg PO HS 12/02/23 12/02/23 History release empagliflozin 10 mg tablet 10 mg PO QPM 12/02/23 12/02/23 History (Jardiance) glyburide 5 mg tablet 5 mg PO QAM 12/02/23 12/02/23 History insulin degludec 100 unit/mL (3 19 unit subcut HS 12/02/23 12/02/23 History mL) subcutaneous pen (Tresiba FlexTouch U-100 insulin) levothyroxine 175 mcg tablet 175 mcg PO 6XWK 12/02/23 12/02/23 History propranolol 120 mg capsule,24 120 mg PO QAM 12/02/23 12/02/23 History hr,extended release rosuvastatin 20 mg tablet 20 mg PO HS 12/02/23 12/02/23 History sitagliptin phosphate 50 1 tab PO BID 12/02/23 12/02/23 History mg-metformin 1,000 mg tablet (Janumet) Patient History Medical History History of thyroid cancer History of diabetes mellitus, type II History of migraine History of hypertension History of hypothyroidism KAVIN (obstructive sleep apnea) Surgical History History of endometrial ablation S/P tooth extraction History of thyroid surgery History of rotator cuff surgery History of cholecystectomy Family History Unknown Osteoarthritis Aunt Rheumatoid arthritis maternal Sister Hypothyroidism Mother Hypothyroidism Father Deep vein thrombosis Denies family history of Cervical cancer Ovarian cancer Breast cancer Colorectal cancer Uterine cancer Social History Smoking Status: Never smoker Second Hand Exposure: No; Do You Dip or Chew Tobacco: No; Hx Alcohol Use: Yes Alcohol type: wine Alcohol Intake Frequency: Monthly or Less Hx Substance Use: No Preferred Language: Bulgarian Communication Ability: Effective Canvas Cutter Machine Required: No Beliefs That Will Affect Care: None marital status: Life Partner Current Living Situation: Spouse Current Living Situation Comment: multiple story house current occupational status: employed 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 Feels Safe at Home: Yes Diet: diabetic Physical Activity Frequency: Does not Exercise Assistive Devices: CPAP Review of Systems Review of Systems: All systems reviewed & are unremarkable except as noted in HPI & below Physical Exam Constitutional: well developed, well nourished, cooperative and comfortable Eyes: normal visual pacheco by confrontation Neck: normal visual inspection and trachea midline Respiratory: normal respiratory effort Cardiovascular: Rate/Rhythm: regular rate and regular rhythm Vessels: posterior tibial pulses present and dorsalis pedis pulses present Musculoskeletal: Extremities: extremities normal to inspection and + foot abnormality (Edema and erythema) Right Skin: normal turgor Neurologic: normal touch/pain/proprioception and moves all extremities Psychiatric: Orientation: alert and oriented x 3 Apperance: appropriately groomed Results & Data Vital Signs (Past 12 Hours) Vital Signs Temp Pulse Pulse Pulse Resp BP Pulse Ox 12/02/23 12:02 36.5 C 88 79 18 96/68 L 94 12/02/23 08:16 36.5 C 79 18 96/68 L 94 12/02/23 03:51 36.5 C 91 H 18 145/81 H 96 12/02/23 02:56 89 16 96 12/02/23 02:24 88 16 130/78 97 12/02/23 01:10 97 H 16 138/91 94 O2 Del Method 12/02/23 12:02 12/02/23 08:16 Room Air 12/02/23 03:51 Room Air 12/02/23 02:56 12/02/23 02:24 Room Air 12/02/23 01:10 Room Air
[2023-12-02] MEDS ORDERED: ENOXAPARIN INJ 40 MG/0.4 ML SYR SQ SCH (21:00)
[2023-12-02] MEDS ORDERED: traZODone HCL 50 MG TAB PO SCH (21:00)
== END 2023-12-02 12:52 | disposition home or self-care (01) ==
LOC: ED 22:16 → INTOOBSV 12-02 01:28 → 3E 12-02 01:28 → SUATTDRO 12-02 01:28 → 3E 12-02 02:56
DX: S92.021A Displaced fracture of anterior process of right calcaneus, initial encounter for closed fracture; Z79.890 Hormone replacement therapy; E11.610 Type 2 diabetes mellitus with diabetic neuropathic arthropathy; S92.341A Displaced fracture of fourth metatarsal bone, right foot, initial encounter for closed fracture; Z88.8 Allergy status to other drugs, medicaments and biological substances; X58.XXXA Exposure to other specified factors, initial encounter; M19.071 Primary osteoarthritis, right ankle and foot; G47.33 Obstructive sleep apnea (adult) (pediatric); S92.211A Displaced fracture of cuboid bone of right foot, initial encounter for closed fracture; Z79.899 Other long term (current) drug therapy; S92.251A Displaced fracture of navicular [scaphoid] of right foot, initial encounter for closed fracture; E11.40 Type 2 diabetes mellitus with diabetic neuropathy, unspecified; Z88.2 Allergy status to sulfonamides; Z79.4 Long term (current) use of insulin; E03.9 Hypothyroidism, unspecified; I10 Essential (primary) hypertension